=== PATIENT | female | born 1940 | race Two or more races ===

== ENCOUNTER 2018-12-13 12:44 | Emergency (ER) | payer OTHER ==
[~2018-12-13] VITALS: Ht 157.5 cm; Wt 72.6 kg
[~2018-12-13 12:44] MED LIST: ATENOLOL25 MG PO; BACTROBAN2% TP; CIPRO500 MG PO; HIB480 TP; LAC PO
[2018-12-13 12:47] VITALS: Ht 157.5 cm; Wt 72.6 kg
[2018-12-13 15:28] VITALS: BP 151/52
== END 2018-12-13 15:28 | disposition home or self-care (01) ==
LOC: ED 12:44
DX: L25.9 Unspecified contact dermatitis, unspecified cause (principal); H00.032 Abscess of right lower eyelid; J44.9 Chronic obstructive pulmonary disease, unspecified; I10 Essential (primary) hypertension
CPT/HCPCS: J1200

== ENCOUNTER 2019-01-04 12:27 | Emergency (ER) | payer OTHER ==
[~2019-01-04] VITALS: Ht 157.5 cm; Wt 73.0 kg
[2019-01-04 12:37] VITALS: Ht 157.5 cm; Wt 73.0 kg
[2019-01-04 14:15] VITALS: BP 126/76
== END 2019-01-04 14:15 | disposition home or self-care (01) ==
LOC: ED 12:27
DX: T63.481A Toxic effect of venom of other arthropod, accidental (unintentional), initial encounter (principal); I10 Essential (primary) hypertension; E78.00 Pure hypercholesterolemia, unspecified; J44.9 Chronic obstructive pulmonary disease, unspecified; Y92.89 Other specified places as the place of occurrence of the external cause; Z98.890 Other specified postprocedural states
CPT/HCPCS: Q0163

== ENCOUNTER 2019-07-17 15:41 | Inpatient (IN) | payer OTHER ==
[~2019-07-17] VITALS: Ht 157.5 cm; Wt 70.1 kg
[2019-07-17 15:52] VITALS: Ht 157.5 cm; Wt 70.1 kg
[2019-07-17 17:16] LABS: PLATELET COUNT 285 x10^3mcL (130-400)
[2019-07-17 17:40] LABS: CALCIUM 8.7 mg/dL (8.5-10.1); CARBON DIOXIDE 24.6 mmol/L (21-32); CHLORIDE SERUM 99 mmol/L (98-107); CREATININE SERUM 0.8 mg/dL (0.6-1.0); GLUCOSE SERUM 126 mg/dL (74-106); POTASSIUM SERUM 3.6 mmol/L (3.5-5.1); SODIUM SERUM 136 mmol/L (136-145)
[2019-07-17 17:45] LABS: ALBUMIN 3.4 g/dL (3.4-5.0); ALKALINE PHOSPHATASE 69 U/L (46-116); ALT/SGPT 19 U/L (14-59); AST/SGOT 23 U/L (15-37); BILIRUBIN TOTAL 0.7 mg/dL (0.20-1.00)
[2019-07-17 17:49] LABS: TOTAL PROTEIN, SERUM 8.6 g/dL (6.4-8.2)
[2019-07-17 17:54] LABS: BAND NEUTROPHIL 6 % (0-10); BASOPHIL 0 % (0-2); MONOCYTE 5 % (0-7); PLATELET MORPHOLOGY PLATELETS NORMAL; SEGMENTED NEUTROPHILS 84 % (37-75); rbc morphology (normal/abnorm) NORMAL (NORMAL)
[2019-07-17 20:44] VITALS: BP 136/48
[2019-07-18 06:08] VITALS: BP 120/49
[2019-07-18 07:26] LABS: BASOPHIL % 0.1 % (0-2); PLATELET COUNT 272 x10^3mcL (130-400); RED CELL DISTRIBUTION WIDTH 14.5 % (11.5-14.5)
[2019-07-18 07:49] LABS: CARBON DIOXIDE 27.7 mmol/L (21-32); CHLORIDE SERUM 102 mmol/L (98-107); CREATININE SERUM 0.8 mg/dL (0.6-1.0); GLUCOSE SERUM 109 mg/dL (74-106); POTASSIUM SERUM 3.9 mmol/L (3.5-5.1); SODIUM SERUM 140 mmol/L (136-145)
[2019-07-18 08:29] VITALS: BP 140/47
[2019-07-18 11:51] VITALS: BP 136/44
[2019-07-18 16:50] VITALS: BP 133/37
[2019-07-19 06:30] LABS: BASOPHIL % 0.1 % (0-2); PLATELET COUNT 276 x10^3mcL (130-400); RED CELL DISTRIBUTION WIDTH 14.1 % (11.5-14.5)
[2019-07-19 07:26] LABS: ALKALINE PHOSPHATASE 64 U/L (46-116); ALT/SGPT 17 U/L (14-59); AST/SGOT 26 U/L (15-37); BILIRUBIN TOTAL 0.3 mg/dL (0.20-1.00); CALCIUM 8.9 mg/dL (8.5-10.1); CARBON DIOXIDE 26.4 mmol/L (21-32); CHLORIDE SERUM 107 mmol/L (98-107); CREATININE SERUM 0.7 mg/dL (0.6-1.0); GLUCOSE SERUM 111 mg/dL (74-106); POTASSIUM SERUM 4.5 mmol/L (3.5-5.1); SODIUM SERUM 142 mmol/L (136-145); TOTAL PROTEIN, SERUM 7.9 g/dL (6.4-8.2)
[2019-07-19 07:30] LABS: ALBUMIN 2.9 g/dL (3.4-5.0)
[2019-07-19 09:09] VITALS: BP 157/68
[2019-07-19] MEDS ORDERED: LAC PO (11:58)
[2019-07-19] MEDS ORDERED: AZITHROMYCIN1 GM PO (11:59)
[2019-07-19] MEDS ORDERED: KEFLEX500 M1 PO (12:00)
[2019-07-22 06:10] LABS: CK-BB 0 % (0); CK-MB 0 % (0-3); CK-MM 100 % (97-100); MACRO TYPE 1 0 % (Not Observed); MACRO TYPE 2 0 % (Not Observed)
== END 2019-07-19 16:52 | disposition home health service (06) | DRG 193 ==
LOC: ED 15:41 → DU 18:08
PROVIDERS: Emergency Medicine; Hospitalist; ADMIT Internal Medicine Pulmonary Disease
DX: J18.9 Pneumonia, unspecified organism (principal); J96.01 Acute respiratory failure with hypoxia; J44.0 Chronic obstructive pulmonary disease with (acute) lower respiratory infection; J44.1 Chronic obstructive pulmonary disease with (acute) exacerbation; I10 Essential (primary) hypertension; R19.7 Diarrhea, unspecified; R29.6 Repeated falls; Z03.818 Encounter for observation for suspected exposure to other biological agents ruled out; Z87.891 Personal history of nicotine dependence; Z98.49 Cataract extraction status, unspecified eye; Z68.28 Body mass index [BMI] 28.0-28.9, adult
CPT/HCPCS: 80201; 83880; 87804; 90658; 90732; G0378; J0456; J0696; J3480; J7050; J7060; J7512; Q0092; U0002